=== PATIENT | female | born 1980 | race Caucasian/White ===

== ENCOUNTER → 2017-03-28 | Outpatient (CLI) | payer OTHER | END | disposition home or self-care (01) | LOC: KCIC MRI 09:53 | DX: M94.262 Chondromalacia, left knee (principal); Z98.890 Other specified postprocedural states | CPT/HCPCS: 73721 ==

== ENCOUNTER → 2020-03-14 | Outpatient (CLI) | payer MEDICAID, OTHER ==
--- NOTE | 2020-03-14 14:37 | KCIC ---
EXAMINATION: MRI RIGHT KNEE WITHOUT IV CONTRAST CLINICAL HISTORY: Right knee pain, shooting pain when bending x 6mths. Pain is posterior. TECHNIQUE: Multiplanar multisequential images obtained through the knee without intravenous contrast. COMPARISON: Bilateral knee radiographs 11/30/2019 FINDINGS: MENISCI: Medial Meniscus: Intact. Lateral Meniscus: Intact. LIGAMENTS: ACL: Intact PCL: Intact MCL: Intact LCL Complex: Intact CARTILAGE: Medial Femoral Condyle: Moderate sized area(s) of predominantly low grade (less than 50% thickness) c artilage loss and or fissuring with smaller area(s) of high grade (greater than 50% thickness) cartil age loss and or fissuring in the weightbearing portion of the condyle Medial Tibial Plateau: Normal Lateral Femoral Condyle: Normal Lateral Tibial Plateau: Normal Patella: Moderate sized area(s) of predominantly low grade (less than 50% thickness) cartilage loss a nd or fissuring with smaller area(s) of high grade (greater than 50% thickness) cartilage loss and or fissuring Trochlea: Small areas(s) of predominantly low grade (less than 50% thickness) cartilage loss and or f issuring with smaller area(s) of high grade (greater than 50% thickness) cartilage loss and or fissur ing in the inferior medial trochlea TENDONS: Distal quadriceps and patellar tendons intact. Popliteus tendon intact. BONES AND MARROW: No evidence of acute fracture or suspicious marrow replacing process. MUSCLES: Muscle bulk and signal intensity within normal limits. JOINT FLUID AND SYNOVIUM: No joint effusion. No synovitis. No Franz's cyst. IMPRESSION: Mild chondral wear, greatest in the patellofemoral compartment. No meniscus tear or acute ligamentous injury. Electronically signed by: Munir Booker DO (03/14/2020 2:35 PM) [id number]
== END ==
LOC: KCIC MRI 09:36
PROVIDERS: ATTEND Family Medicine
DX: M25.561 Pain in right knee (principal)
CPT/HCPCS: 73721